=== PATIENT | female | born 1955 | race Hispanic/Latino ===

== ENCOUNTER → 2022-05-06 | Outpatient (CLI) | payer OTHER | LOC: MAMMO 07:58 | PROVIDERS: ATTEND Family Medicine | DX: Z12.31 Encounter for screening mammogram for malignant neoplasm of breast (principal) | CPT/HCPCS: 77067 ==

== ENCOUNTER → 2022-05-24 | Outpatient (CLI) | payer OTHER | LOC: DX 08:07 | PROVIDERS: ATTEND Family Medicine | DX: M81.8 Other osteoporosis without current pathological fracture (principal); M25.561 Pain in right knee | CPT/HCPCS: 77080 ==

== ENCOUNTER → 2023-09-20 | Outpatient (REF) | payer OTHER | LOC: MAMMO 11:47 | PROVIDERS: ATTEND Family Medicine | DX: Z12.31 Encounter for screening mammogram for malignant neoplasm of breast (principal) | CPT/HCPCS: 77067 ==